=== PATIENT | male | born 1980 ===

== ENCOUNTER 2017-10-03 23:39 | Inpatient (IN) | payer OTHER ==
[2017-10-04 00:40] LABS: BASO % 0.2 % (0.0-2.0); HEMOGLOBIN 14.9 g/dL (12.0-18.0); LYMPH # 1.3 K/uL (1.0-4.3); LYMPH % 10.6 % (20.0-40.0); MEAN CELL VOLUME 89.5 fL (80.0-94.0); MEAN CORPUSCULAR HEMOGLOBIN 30.7 pg (27.0-31.0); MEAN CORPUSCULAR HGB CONC 34.3 g/dL (33.0-37.0); MONO # 0.6 K/uL (0.0-0.8); MONO % 5.2 % (0.0-10.0); NEUT # 10.1 K/uL (1.8-7.0); NRBC % 0.1 % (0.0-2.0); RBC 4.85 Mil/uL (4.40-5.90); RED CELL DISTRIBUTION WIDTH 14.1 % (11.5-14.5); WHITE BLOOD COUNT 12.1 K/uL (4.8-10.8)
[2017-10-04 00:47] LABS: ALB/GLOB RATIO 1.2 (1.0-2.1); ALBUMIN 4.7 g/dL (3.5-5.0); ALT/SGPT 287 U/L (21-72); AST/SGOT 676 U/L (17-59); BLOOD UREA NITROGEN 11 mg/dL (9-20); CALCIUM 8.3 mg/dl (8.6-10.4); GFR AFRICAN-AMERICAN > 60; GFR NON-AFRICAN AMERICAN > 60
[2017-10-04 00:53] LABS: ACETAMINOPHEN < 10.0 ug/mL (10.0-30.0); SALICYLATE < 1.0 mg/dL 1
[2017-10-04] MEDS ORDERED: Sodium Chloride 0.9% 1,000 ML IV ONE ×2 (01:13→04:51)
--- NOTE | 2017-10-04 02:01 | C.PDOC ---
History Of Present Illness 36 year old male presents to the ER by brother after patient was noted to be on a 3 day drinking binge. As per brother, patient is living with 3 other guys who state he has been acting weird. 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 Time Seen by Provider: 10/04/17 00:02 Chief Complaint (Nursing): Substance Abuse History Per: Family History/Exam Limitations: intoxication Onset/Duration Of Symptoms: Days Current Symptoms Are (Timing): Still Present Suicide/Self Injury Attempted (Context): None Modifying Factor(s): Alcohol Associated Symptoms: denies: Depression, Suicidal Thoughts Involuntary Hold By: None Recent travel outside of the [place]: No Past Medical History Reviewed: Historical Data, Nursing Documentation, Vital Signs Vital Signs: Last Vital Signs Temp 97 F L 10/03/17 23:49 Pulse 98 H 10/04/17 05:30 Resp 23 10/04/17 05:30 BP 138/84 10/04/17 05:30 Pulse Ox 96 10/04/17 05:30 Family History: States: Unknown Family Hx - Social History Hx Alcohol Use: Yes Hx Substance Use: No - Immunization History Hx Tetanus Toxoid Vaccination: No Hx Influenza Vaccination: No Hx Pneumococcal Vaccination: No Review Of Systems Review Of Systems: ROS cannot be obtained secondary to pt's inabilty to answer questions. Physical Exam - Physical Exam Appears: Non-toxic, Other (Obese male, ETOH on breath, not answering; lays down on floor, gets up, walks around, lays down again, approximately every 60 seconds.) Skin: Warm, Dry Head: Atraumatic, Normacephalic Eye(s): bilateral: Normal Inspection Oral Mucosa: Moist Chest: Symmetrical, No Tenderness Cardiovascular: Rhythm Regular Respiratory: Normal Breath Sounds, No Rales, No Rhonchi, No Wheezing Gastrointestinal/Abdominal: Soft, No Tenderness Extremity: Other (Ecchymosis to right proximal elbow area) Neurological/Psych: Oriented x3, Normal Speech ED Course And Treatment - Laboratory Results Result Diagrams: 10/04/17 00:36 10/04/17 00:36 O2 Sat by Pulse Oximetry: 96 (Room air) Pulse Ox Interpretation: Normal Progress Note: CT head, blood work, urinalysis, EKG, CXR ordered. IV fluids administered. Reevaluation Time: 06:00 Reassessment Condition: Improved - Physician Consult Information Outcome Of Conversation: 0600: d/w nickie Vega to admit. Disposition Doctor Will See Patient In The: Hospital Counseled Patient/Family Regarding: Studies Performed, Diagnosis - Disposition Disposition: HOSPITALIZED Disposition Time: 07:14 Condition: FAIR - Clinical Impression Clinical Impression: Alcohol dependence - Scribe Statement The provider has reviewed the documentation as recorded by the Scribcat Ghotra All medical record entries made by the Anupibcat were at my direction and personally dictated by me. I have reviewed the chart and agree that the record accurately reflects my personal performance of the history, physical exam, medical decision making, and the department course for this patient. I have also personally directed, reviewed, and agree with the discharge instructions and disposition.
[2017-10-04 03:09] LABS: URINE BILIRUBIN NEGATIVE (NEGATIVE); URINE BLOOD 3+ (NEGATIVE); URINE CLARITY Clear (Clear); URINE COLOR Yellow (YELLOW); URINE GLUCOSE (UA) NORMAL (Normal); URINE LEUKOCYTE ESTERASE NEG Leu/uL (Negative); URINE PROTEIN 2+ mg/dL (NEGATIVE)
[2017-10-04 03:34] LABS: BARBITURATES, UR NEGATIVE (NEGATIVE); BENZODIAZEPINES, UR NEGATIVE (NEGATIVE); OPIATES, UR NEGATIVE (NEGATIVE); PHENCYCLIDINE, UR NEGATIVE (NEGATIVE)
[2017-10-04] MEDS ORDERED: Sodium Chloride 0.9% 1,000 ML ONE (04:51)
--- NOTE | 2017-10-04 07:56 | CP.PCM.HP ---
<Stephan Galvin - Last Filed: 10/04/17 13:40> History of Present Illness - History of Present Illness History of Present Illness: CC: Alcohol withdraw 36 year old male with history of alcohol abuse was brought to the ED by his brother for alcohol intoxication. Patient is intoxicated and unable to provide meaning history. Per brother and sister in law over the phone, patient is a chronic alcohol abuser with no other medical history. Patient has been drinking for the past 4 days. Relatives unable to verified if patient injured himself during intoxication. Unable to obtain further ROS due to patient's condition. PMHx: alcohol abuse PSHx: none Allergy: NKDA Social Hx: alcohol, denies tobacco or other drug use Family Hx: non contributory Home meds: none Present on Admission - Present on Admission Any Indicators Present on Admission: No Review of Systems - Review of Systems Systems not reviewed;Unavailable: Intoxicated, Uncooperative - Constitutional Constitutional: As Per HPI - EENT Eyes: As Per HPI Ears: As Per HPI Nose/Mouth/Throat: As Per HPI - Cardiovascular Cardiovascular: As Per HPI - Respiratory Respiratory: As Per HPI - Gastrointestinal Gastrointestinal: As Per HPI - Genitourinary Genitourinary: As Per HPI - Reproductive: Male Reproductive:Male: As Per HPI - Musculoskeletal Musculoskeletal: As Per HPI - Integumentary Integumentary: As Per HPI - Neurological Neurological: As Per HPI Additional comments: Patient is restless, unable to follow verbal commands - Psychiatric Psychiatric: As Per HPI - Endocrine Endocrine: As Per HPI - Hematologic/Lymphatic Hematologic: As Per HPI Past Patient History - Past Social History Smoking Status: Never Smoked - PSYCHIATRIC Hx Substance Use: No - SURGICAL HISTORY Hx Surgeries: No Meds Allergies/Adverse Reactions: Allergies Allergy/AdvReac Type Severity Reaction Status Date / Time No Known Allergies Allergy Unverified 10/03/17 23:52 Physical Exam - Constitutional Appears: No Acute Distress, Unkempt - ENT Exam ENT Exam: Mucous Membranes Moist, Normal Exam - Neck Exam Neck exam: Positive for: Normal Inspection - Respiratory Exam Respiratory Exam: Clear to Auscultation Bilateral, NORMAL BREATHING PATTERN. absent: Respiratory Distress - Cardiovascular Exam Cardiovascular Exam: REGULAR RHYTHM, +S1, +S2 - GI/Abdominal Exam GI & Abdominal Exam: Normal Bowel Sounds, Soft. absent: Tenderness - Extremities Exam Additional comments: left arm ecchymosis - Neurological Exam Additional comments: Patient does not follow verbal commands, tries to climb out of the bed. - Skin Skin Exam: Dry, Warm Results - Vital Signs Recent Vital Signs: Last Vital Signs Temp 97 F L 10/03/17 23:49 Pulse 102 H 10/04/17 06:44 Resp 23 10/04/17 06:44 BP 157/85 H 10/04/17 06:44 Pulse Ox 96 10/04/17 07:15 - Labs Result Diagrams: 10/04/17 00:36 10/04/17 00:36 Labs: Laboratory Results - last 24 hr 10/04/17 10/04/17 10/04/17 00:36 00:36 00:36 WBC 12.1 H RBC 4.85 Hgb 14.9 Hct 43.4 MCV 89.5 MCH 30.7 MCHC 34.3 RDW 14.1 Plt Count 167 MPV 10.0 Neut % (Auto) 84.0 H Lymph % (Auto) 10.6 L [place] % (Auto) 5.2 Eos % (Auto) 0.0 Baso % (Auto) 0.2 Neut # (Auto) 10.1 H Lymph # (Auto) 1.3 Dix[place] # (Auto) 0.6 Eos # (Auto) 0.0 Baso # (Auto) 0.0 Sodium 141 Potassium 3.5 L Chloride 95 L Carbon Dioxide 22 Anion Gap 27 H BUN 11 Creatinine 0.6 L Est GFR ( Amer) > 60 Est GFR (Non-Af Amer) > 60 POC Glucose (mg/dL) Random Glucose 130 H Calcium 8.3 L Total Bilirubin 2.0 H AST 676 H ALT 287 H Alkaline Phosphatase 151 H Ammonia 33 Total Protein 8.7 H Albumin 4.7 Globulin 4.0 H Albumin/Globulin Ratio 1.2 Urine Color Urine Clarity Urine pH Ur Specific [place] Urine Protein Urine Glucose (UA) Urine Ketones Urine Blood Urine Nitrate Urine Bilirubin Urine Urobilinogen Ur Leukocyte Esterase Urine RBC (Auto) Salicylates Urine Opiates Screen Urine Methadone Screen Acetaminophen Ur Barbiturates Screen Ur Phencyclidine Scrn Ur Amphetamines Screen U Benzodiazepines Scrn U Oth Cocaine Metabols U Cannabinoids Screen Alcohol, Quantitative 383 H 10/04/17 10/04/17 10/04/17 00:37 00:45 03:02 WBC RBC Hgb Hct MCV MCH MCHC RDW Plt Count MPV Neut % (Auto) Lymph % (Auto) [place] % (Auto) Eos % (Auto) Baso % (Auto) Neut # (Auto) Lymph # (Auto) [place] # (Auto) Eos # (Auto) Baso # (Auto) Sodium Potassium Chloride Carbon Dioxide Anion Gap BUN Creatinine Est GFR ( Amer) Est GFR (Non-Af Amer) POC Glucose (mg/dL) 109 Random Glucose Calcium Total Bilirubin AST ALT Alkaline Phosphatase Ammonia Total Protein Albumin Globulin Albumin/Globulin Ratio Urine Color Yellow Urine Clarity Clear Urine pH 6.0 Ur Specific [place] 1.013 Urine Protein 2+ H Urine Glucose (UA) Normal Urine Ketones 2+ H Urine Blood 3+ H Urine Nitrate Negative Urine Bilirubin Negative Urine Urobilinogen 4.0 Ur Leukocyte Esterase Neg Urine RBC (Auto) 27 H Salicylates < 1.0 Urine Opiates Screen Urine Methadone Screen Acetaminophen < 10.0 L Ur Barbiturates Screen Ur Phencyclidine Scrn Ur Amphetamines Screen U Benzodiazepines Scrn U Oth Cocaine Metabols U Cannabinoids Screen Alcohol, Quantitative 10/04/17 03:02 WBC RBC Hgb Hct MCV MCH MCHC RDW Plt Count MPV Neut % (Auto) Lymph % (Auto) [place] % (Auto) Eos % (Auto) Baso % (Auto) Neut # (Auto) Lymph # (Auto) [place] # (Auto) Eos # (Auto) Baso # (Auto) Sodium Potassium Chloride Carbon Dioxide Anion Gap BUN Creatinine Est GFR ( Amer) Est GFR (Non-Af Amer) POC Glucose (mg/dL) Random Glucose Calcium Total Bilirubin AST ALT Alkaline Phosphatase Ammonia Total Protein Albumin Globulin Albumin/Globulin Ratio Urine Color Urine Clarity Urine pH Ur Specific [place] Urine Protein Urine Glucose (UA) Urine Ketones Urine Blood Urine Nitrate Urine Bilirubin Urine Urobilinogen Ur Leukocyte Esterase Urine RBC (Auto) Salicylates Urine Opiates Screen Negative Urine Methadone Screen Negative Acetaminophen Ur Barbiturates Screen Negative Ur Phencyclidine Scrn Negative Ur Amphetamines Screen Negative U Benzodiazepines Scrn Negative U Oth Cocaine Metabols Negative U Cannabinoids Screen Negative Alcohol, Quantitative Assessment & Plan - Assessment and Plan (Free Text) Assessment: Alcohol intoxication -Banana bag IV 100ml/hr -Ativan IV 1mg Q4hr prn -Follow up hepatitis panel, CPK -1:1 observation -[facility] -Head CT shows no evidence of intracranial mass or hemorrhage -Psychiatry consult, Dr. Glez help appreciated Prophylactic measures -Protonix -SCD -Zofran -Motrin <Lacey D eLa Vega - Last Filed: 10/04/17 15:12> Results - Vital Signs Recent Vital Signs: Last Vital Signs Temp 97.5 F L 10/04/17 08:01 Pulse 112 H 10/04/17 12:53 Resp 20 10/04/17 08:01 BP 130/67 10/04/17 08:01 Pulse Ox 99 10/04/17 08:01 - Labs Result Diagrams: 10/04/17 00:36 10/04/17 00:36 Labs: Laboratory Results - last 24 hr 10/04/17 10/04/17 10/04/17 00:36 00:36 00:36 WBC 12.1 H RBC 4.85 Hgb 14.9 Hct 43.4 MCV 89.5 MCH 30.7 MCHC 34.3 RDW 14.1 Plt Count 167 MPV 10.0 Neut % (Auto) 84.0 H Lymph % (Auto) 10.6 L [place] % (Auto) 5.2 Eos % (Auto) 0.0 Baso % (Auto) 0.2 Neut # (Auto) 10.1 H Lymph # (Auto) 1.3 [place] # (Auto) 0.6 Eos # (Auto) 0.0 Baso # (Auto) 0.0 Sodium 141 Potassium 3.5 L Chloride 95 L Carbon Dioxide 22 Anion Gap 27 H BUN 11 Creatinine 0.6 L Est GFR ( Amer) > 60 Est GFR (Non-Af Amer) > 60 POC Glucose (mg/dL) Random Glucose 130 H Calcium 8.3 L Total Bilirubin 2.0 H AST 676 H ALT 287 H Alkaline Phosphatase 151 H Ammonia 33 Total Creatine Kinase 6715 H Total Protein 8.7 H Albumin 4.7 Globulin 4.0 H Albumin/Globulin Ratio 1.2 Triglycerides 354 H Cholesterol 349 H LDL Cholesterol Direct 222 H HDL Cholesterol 84 H TSH 3rd Generation 0.47 Urine Color Urine Clarity Urine pH Ur Specific [place] Urine Protein Urine Glucose (UA) Urine Ketones Urine Blood Urine Nitrate Urine Bilirubin Urine Urobilinogen Ur Leukocyte Esterase Urine RBC (Auto) Salicylates Urine Opiates Screen Urine Methadone Screen Acetaminophen Ur Barbiturates Screen Ur Phencyclidine Scrn Ur Amphetamines Screen U Benzodiazepines Scrn U Oth Cocaine Metabols U Cannabinoids Screen Alcohol, Quantitative 383 H 10/04/17 10/04/17 10/04/17 00:37 00:45 03:02 WBC RBC Hgb Hct MCV MCH MCHC RDW Plt Count MPV Neut % (Auto) Lymph % (Auto) [place] % (Auto) Eos % (Auto) Baso % (Auto) Neut # (Auto) Lymph # (Auto) [place] # (Auto) Eos # (Auto) Baso # (Auto) Sodium Potassium Chloride Carbon Dioxide Anion Gap BUN Creatinine Est GFR ( Amer) Est GFR (Non-Af Amer) POC Glucose (mg/dL) 109 Random Glucose Calcium Total Bilirubin AST ALT Alkaline Phosphatase Ammonia Total Creatine Kinase Total Protein Albumin Globulin Albumin/Globulin Ratio Triglycerides Cholesterol LDL Cholesterol Direct HDL Cholesterol TSH 3rd Generation Urine Color Yellow Urine Clarity Clear Urine pH 6.0 Ur Specific [place] 1.013 Urine Protein 2+ H Urine Glucose (UA) Normal Urine Ketones 2+ H Urine Blood 3+ H Urine Nitrate Negative Urine Bilirubin Negative Urine Urobilinogen 4.0 Ur Leukocyte Esterase Neg Urine RBC (Auto) 27 H Salicylates < 1.0 Urine Opiates Screen Urine Methadone Screen Acetaminophen < 10.0 L Ur Barbiturates Screen Ur Phencyclidine Scrn Ur Amphetamines Screen U Benzodiazepines Scrn U Oth Cocaine Metabols U Cannabinoids Screen Alcohol, Quantitative 10/04/17 03:02 WBC RBC Hgb Hct MCV MCH MCHC RDW Plt Count MPV Neut % (Auto) Lymph % (Auto) [place] % (Auto) Eos % (Auto) Baso % (Auto) Neut # (Auto) Lymph # (Auto) [place] # (Auto) Eos # (Auto) Baso # (Auto) Sodium Potassium Chloride Carbon Dioxide Anion Gap BUN Creatinine Est GFR ( Amer) Est GFR (Non-Af Amer) POC Glucose (mg/dL) Random Glucose Calcium Total Bilirubin AST ALT Alkaline Phosphatase Ammonia Total Creatine Kinase Total Protein Albumin Globulin Albumin/Globulin Ratio Triglycerides Cholesterol LDL Cholesterol Direct HDL Cholesterol TSH 3rd Generation Urine Color Urine Clarity Urine pH Ur Specific [place] Urine Protein Urine Glucose (UA) Urine Ketones Urine Blood Urine Nitrate Urine Bilirubin Urine Urobilinogen Ur Leukocyte Esterase Urine RBC (Auto) Salicylates Urine Opiates Screen Negative Urine Methadone Screen Negative Acetaminophen Ur Barbiturates Screen Negative Ur Phencyclidine Scrn Negative Ur Amphetamines Screen Negative U Benzodiazepines Scrn Negative U Oth Cocaine Metabols Negative U Cannabinoids Screen Negative Alcohol, Quantitative Attending/Attestation - Attestation I have personally seen and examined this patient.: Yes I have fully participated in the care of the patient.: Yes I have reviewed all pertinent clinical information: Yes Notes (Text): Patient was seen and examined. He was sedated after ativan. Not able to get history. [place] was agitated at ER. History taken form his family Patient is arousable and moving all [address] head negative for bleed/ pathology Has elevated LFT likely due to alcohol.normal ammonia level.Mild leukocytosis.likely reactive leukocytosis.no fever,clear chest x jacinto. High alcohol level 383 1. Alcohol withdrawal/alcohol abuse 2. Transaminitis 3. Hyperlipidemia 4.Leukocytosis continue banana bag. Ativan as needed.Get US abdomen,follow LFT,seizure and aspiration precaution.GI and DVT prophylaxis. psychiatry consult appreciated discussed with the resident. I agree with the resident's documentation of the assessment and the plan
--- NOTE | 2017-10-04 08:53 | RAD ---
PROCEDURE: CHEST RADIOGRAPH, 1 VIEW HISTORY: Detox/Psy COMPARISON: None available. FINDINGS: LUNGS: Clear. PLEURA: No pneumothorax or pleural fluid seen. CARDIOVASCULAR: Normal. OSSEOUS STRUCTURES: No significant abnormalities. VISUALIZED UPPER ABDOMEN: Normal. OTHER FINDINGS: None. IMPRESSION: No active disease.
[2017-10-04 09:25] LABS: HDL CHOLESTEROL 84 mg/dL (30-70)
[2017-10-04 09:36] LABS: LDL CHOLESTEROL 222 mg/dL (0-129)
[2017-10-04] MEDS: Folic Acid 1 MG, Thiamine 100 MG, Multivitamin (MVI) 10 ML in Sodium Chloride 0.9% 1,00... IV SCH (10:09)
[2017-10-04] MEDS: Pantoprazole 40 mg EC Tab PO SCH (10:12)
--- NOTE | 2017-10-04 10:21 | CT ---
PROCEDURE: CT HEAD WITHOUT CONTRAST. HISTORY: AMS, alcohol intoxication, poss trauma COMPARISON: None available. TECHNIQUE: Axial computed tomography images were obtained through the head/brain without intravenous contrast. Radiation dose: Total exam DLP = 1006.54 mGy-cm. This CT exam was performed using one or more of the following dose reduction techniques: Automated exposure control, adjustment of the mA and/or kV according to patient size, and/or use of iterative reconstruction technique. FINDINGS: HEMORRHAGE: No intracranial hemorrhage. BRAIN: No mass effect or edema. No atrophy or chronic microvascular ischemic changes. VENTRICLES: Unremarkable. No hydrocephalus. CALVARIUM: Unremarkable. PARANASAL SINUSES: Small left maxillary retention cyst/polyp. MASTOID AIR CELLS: Unremarkable as visualized. No inflammatory changes. OTHER FINDINGS: None. IMPRESSION: No intracranial mass, hemorrhage or evidence of acute infarct.
--- NOTE | 2017-10-04 12:25 | PCM.PSYCH ---
Initial Psychiatric Evaluation - Initial Psychiatric Evaluation Chief Complaint (in patient's own words): No response to c/c question. He is seen for a consult for alcohol wdw. licensed and certified midwife used. History of Present Illness and Precipitating Events: The pt is seen, chart reviewed and case discussed He is a very poor historian b/c of his confusion. He is a 36 y/o LM, single, lives with some friends and works on and off He drinks more than a pint but in binges. Denies drugs Reports depressive sxs and a suicide attempt last year. Not suicidal now His alertness comes and goes. He is somewhat oriented to place/time, is restless and sweating. Medical: Obese Family psych hx: Unknown Current Medications: Active Medications Generic Name Dose Route Start Last Admin Trade Name Freq PRN Reason Stop Dose Admin Gabapentin 400 mg 10/04/17 14:00 Neurontin PO TID GABY Haloperidol 5 mg 10/04/17 12:20 Haldol PO Q4H PRN Agitation Folic Acid 1 mg/ Thiamine HCl 1,011.2 mls @ 100 mls/hr 10/04/17 10:00 10:09 100 mg/ Multivitamins/Vitamin IV 100 mls/hr C 10 ml/ Sodium Chloride DAILY GABY Administration Ibuprofen 400 mg 10/04/17 07:32 Motrin Tab PO Q6 PRN Fever >100.4 F Lorazepam 1 mg 10/04/17 08:30 Ativan IVP Q4H PRN Seizure activity Lorazepam 2 mg 10/04/17 12:30 Ativan IVP 10/08/17 12:29 Q6H GABY Taper Lorazepam 1 mg 10/04/17 12:18 Ativan IVP Q3H PRN Breakthru alcohol withdrawal Ondansetron HCl 4 mg 10/04/17 07:32 Zofran Inj IVP Q6 PRN Nausea/Vomiting Pantoprazole Sodium 40 mg 10/04/17 10:00 10/04/17 10:12 Protonix Ec Tab PO Not Given DAILY GABY Past Psychiatric History - Past Psychiatric History Previous Treatment History: Intensive Outpatient Pertinent Medical Hx (Current Medical&Sleep Prob, Allergies): Allergies Allergy/AdvReac Type Severity Reaction Status Date / Time No Known Allergies Allergy Unverified 10/03/17 23:52 Review of Systems - Neurological Neurological: Confusion, Tremor - Psychiatric Psychiatric: Abnormal Sleep Pattern, Anxiety, Confusion, Difficulty Concentrating, Hallucinations (likely), Irritability. absent: Homicidal Ideation, Suicidal Ideation Mental Status Examination - Personal Presentation Personal Presentation: Looks older than stated age - Affect Affect: Blunted (odd) - Motor Activity Motor Activity: Other (restless) - Reliability in Providing Information Reliability in Providing Information: Poor, due to cognitve impairment - Speech Speech: Disorganized - Mood Mood: Anxious - Formal Thought Process Formal Thought Process: Hallucinations, Loosening of associations - Cognitive Functions Orientation: Place ('hospital" Disoriented in other spheres) Attention/Concentration: Easily distracted Abstract Thinking: [place] Estimate of Intelligence: Average Judgement: Intact, as evidence by: Insight regarding need for hospitalization Memory: Recent impaired, as evidence by: Inability to recall events of the day - Risk Risk: Seizure, Withdrawal, Diminished functioning - Strength & Assets Inventory Strength & Assets Inventory: Life experience, Cooperative - Limitations Limitations: Living alone DSM 5 DX - DSM 5 DSM 5 Diagnosis: Alcohol withdrawal delirium Alcohol use d/o - severe MAjor depression, recurrent, moderate - Recommended/Plan of Treatment Treatment Recommendations and Plan of Treatment: Ativan detox Remeron for depression, insomnia As needed medications Gabapentin for augmentation All risks, benefits and alternatives of medications, including no medications, discussed and the patient understood Supportive therapy and psychoeducation AR for abstinence CBT for relapse prevention Encourage MAT Refer to rehab or IOP/AA 34 min
[2017-10-05 08:52] LABS: BASO % 0.2 % (0.0-2.0); EOS % 0.5 % (0.0-4.0); HEMOGLOBIN 13.8 g/dL (12.0-18.0); LYMPH # 0.9 K/uL (1.0-4.3); LYMPH % 12.5 % (20.0-40.0); MEAN CELL VOLUME 89.8 fL (80.0-94.0); MEAN CORPUSCULAR HEMOGLOBIN 31.1 pg (27.0-31.0); MEAN CORPUSCULAR HGB CONC 34.6 g/dL (33.0-37.0); MEAN PLATELET VOLUME 10.6 fL (7.2-11.7); MONO # 0.3 K/uL (0.0-0.8); NEUT # 6.2 K/uL (1.8-7.0); NEUT % 82.8 % (50.0-75.0); NRBC % 0.2 % (0.0-2.0); RBC 4.43 Mil/uL (4.40-5.90); RED CELL DISTRIBUTION WIDTH 14.2 % (11.5-14.5); WHITE BLOOD COUNT 7.5 K/uL (4.8-10.8)
[2017-10-05 08:57] LABS: ALB/GLOB RATIO 1.2 (1.0-2.1); ALBUMIN 4.3 g/dL (3.5-5.0); ALT/SGPT 215 U/L (21-72); AST/SGOT 297 U/L (17-59); BLOOD UREA NITROGEN 7 mg/dL (9-20); CALCIUM 8.6 mg/dl (8.6-10.4); GFR AFRICAN-AMERICAN > 60; GFR NON-AFRICAN AMERICAN > 60
[2017-10-05] MEDS: Pantoprazole 40 mg EC Tab PO SCH (09:14)
[2017-10-05] MEDS: Folic Acid 1 MG, Thiamine 100 MG, Multivitamin (MVI) 10 ML in Sodium Chloride 0.9% 1,00... IV SCH (09:14)
--- NOTE | 2017-10-05 09:55 | PCM.PYCHPN ---
Psychiatric Progress Note - Psychiatric Progress Note Patient seen today, length of contact: 16 min Patient Chief Complaint: "OK" Problems Identified/Issues Discussed: He is seen with Albanian-speaking nurse, chart reviewed. He is better than yesterday; not restless, more in control and speaking more but with some hesitancy and pausing. He has blunted affect, but denied feeling suicidal. Depressed but doesn't look sad, more perplexed. Denied AVH, better oriented but not fully. Support given Medication Change: Yes (detox changes daily) Medical Record Reviewed: Yes Mental Status Examination - Cognitive Function Orientation: Person, Place Memory: Impaired Attention: Poor Concentration: Poor Association: Loose Fund of Knowledge: Poor - Mood Mood: Anxious - Affect Affect: Blunted (odd) - Speech Speech: Soft - Formal Thought Process Formal Thought Process: Loosening of associations - Suicidal Ideation Suicidal Ideation: No - Homicidal Ideation Homicidal Ideation: No Goal/Treatment Plan - Goal/Treatment Plan Need for Continued Stay: Discharge may exacerbated symptoms, Severe functional impairment, Other (medical) Progress Toward Problem(s) and Goals/Treatment Plan: Ativan detox Remeron for depression, insomnia As needed medications Gabapentin for augmentation All risks, benefits and alternatives of medications, including no medications, discussed and the patient understood Supportive therapy and psychoeducation ID for abstinence CBT for relapse prevention Encourage MAT Refer to rehab or IOP/AA
--- NOTE | 2017-10-05 10:28 | CP.PCM.PN ---
<Stephan Galvin - Last Filed: 10/05/17 15:15> Subjective - Date & Time of Evaluation Date of Evaluation: 10/05/17 Time of Evaluation: 08:15 - Subjective Subjective: Patient seen and examined at bedside. Patient has been restless all night. Currently patient is able to answer simple questions with long pauses. He is unable to answer how he got the bruises on his body. Patient denies pain anywhere in the body. He further denies headache, dizziness, shortness of breath , chest pain, nausea, vomiting. Objective - Vital Signs/Intake and Output Vital Signs (last 24 hours): Temp Pulse Resp BP Pulse Ox 97.6 F 125 H 20 133/89 97 10/05/17 04:31 10/05/17 04:31 10/05/17 04:31 10/05/17 04:31 10/05/17 04:31 Intake and Output: 10/05/17 10/05/17 06:59 18:59 Intake Total 740 Output Total 2000 Balance -1260 - Medications Medications: Current Medications Folic Acid (Folic Acid) 1 mg PO DAILY [facility] Gabapentin (Neurontin) 400 mg PO TID [facility] Last Admin: 10/05/17 09:15 Dose: 400 mg Haloperidol (Haldol) 5 mg PO Q4H PRN PRN Reason: Agitation Haloperidol Lactate (Haldol) 5 mg IVP Q6H PRN PRN Reason: severe agitation Sodium Chloride (Sodium Chloride 0.9%) 1,000 mls @ 100 mls/hr IV .Q10H [facility] Ibuprofen (Motrin Tab) 400 mg PO Q6 PRN PRN Reason: Fever >100.4 F Lorazepam (Ativan) 2 mg IVP Q6H [facility] PRN Reason: Taper Stop: 10/08/17 12:29 Last Admin: 10/05/17 06:34 Dose: 2 mg Lorazepam (Ativan) 1 mg IVP Q3H PRN PRN Reason: Breakthru alcohol withdrawal Last Admin: 10/04/17 13:56 Dose: 1 mg Lorazepam (Ativan) 2 mg IVP Q4H PRN PRN Reason: Seizure activity Mirtazapine (Remeron) 15 mg PO HS [facility] Ondansetron HCl (Zofran Inj) 4 mg IVP Q6 PRN PRN Reason: Nausea/Vomiting Pantoprazole Sodium (Protonix Ec Tab) 40 mg PO DAILY [facility] Last Admin: 10/05/17 09:14 Dose: 40 mg Pneumococcal Polyvalent Vaccine (Pneumovax 23 Vaccine) 0.5 ml IM .ONCE ONE Stop: 10/06/17 10:01 Thiamine HCl (Vitamin B1 Tab) 100 mg PO DAILY [facility] - Labs Labs: 10/05/17 08:26 10/05/17 08:26 - Constitutional Appears: No Acute Distress, Confused - Head Exam Head Exam: ATRAUMATIC, NORMOCEPHALIC - Eye Exam Eye Exam: Normal appearance - ENT Exam ENT Exam: Mucous Membranes Moist - Neck Exam Neck Exam: Normal Inspection - Respiratory Exam Respiratory Exam: Clear to Ausculation Bilateral, NORMAL BREATHING PATTERN. absent: Respiratory Distress - Cardiovascular Exam Cardiovascular Exam: Tachycardia, +S1, +S2 - GI/Abdominal Exam GI & Abdominal Exam: Soft, Normal Bowel Sounds - Neurological Exam Neurological Exam: Awake. absent: Oriented x3 (orient to place) - Psychiatric Exam Psychiatric exam: Flat Affect - Skin Additional comments: ecchymosis located at medial left arm, bilateral forearm, and left flank Assessment and Plan - Assessment and Plan (Free Text) Assessment: Alcohol intoxication -NS @100ml/hr -PO folic acid and B1 -Ativan IV 1mg Q4hr prn -Follow up hepatitis panel, CPK -1:1 observation -CIWA -Head CT shows no evidence of intracranial mass or hemorrhage -Psychiatry consult, Dr. Glez help appreciated Transaminitis -Follow up abdominal US -Hepatitis panel pending -AST/ALT today 293/215 Rhabdomyolysis -NS @100ml/hr -improving CPK 4029, 2589 today Hematuria -Light red color urine this afternoon -Repeat UA showed RBC 3025 -Urology consult, Dr. Spicer help appreciated Hyperlipidemia -TG 354, Chol 349, LDL 222, HDL 84 -Will start med once LFT and rhabdomyolysis improved Prophylactic measures -Protonix -SCD -Zojeff -Motgerman Case discussed with Dr. De La Vega <Lacey De La Vega - Last Filed: 10/05/17 18:08> Objective - Vital Signs/Intake and Output Vital Signs (last 24 hours): Temp Pulse Resp BP Pulse Ox 99.7 F H 110 H 18 145/101 H 100 10/05/17 16:00 10/05/17 16:07 10/05/17 16:00 10/05/17 16:00 10/05/17 16:00 Intake and Output: 10/05/17 10/05/17 06:59 18:59 Intake Total 740 Output Total 1999 Balance -1260 - Medications Medications: Current Medications Folic Acid (Folic Acid) 1 mg PO DAILY [facility] Gabapentin (Neurontin) 400 mg PO TID [facility] Last Admin: 10/05/17 17:14 Dose: 400 mg Haloperidol (Haldol) 5 mg PO Q4H PRN PRN Reason: Agitation Haloperidol Lactate (Haldol) 5 mg IVP Q6H PRN PRN Reason: severe agitation Sodium Chloride (Sodium Chloride 0.9%) 1,000 mls @ 100 mls/hr IV .Q10H [facility] Last Admin: 10/05/17 14:11 Dose: 100 mls/hr Ibuprofen (Motrin Tab) 400 mg PO Q6 PRN PRN Reason: Fever >100.4 F Lorazepam (Ativan) 2 mg IVP Q8H [facility] PRN Reason: Taper Stop: 10/08/17 12:29 Last Admin: 10/05/17 14:11 Dose: 2 mg Lorazepam (Ativan) 1 mg IVP Q3H PRN PRN Reason: Breakthru alcohol withdrawal Last Admin: 10/04/17 13:56 Dose: 1 mg Lorazepam (Ativan) 2 mg IVP Q4H PRN PRN Reason: Seizure activity Mirtazapine (Remeron) 15 mg PO HS [facility] Ondansetron HCl (Zofran Inj) 4 mg IVP Q6 PRN PRN Reason: Nausea/Vomiting Pantoprazole Sodium (Protonix Ec Tab) 40 mg PO DAILY [facility] Last Admin: 10/05/17 09:14 Dose: 40 mg Pneumococcal Polyvalent Vaccine (Pneumovax 23 Vaccine) 0.5 ml IM .ONCE ONE Stop: 10/06/17 10:01 Potassium Chloride (K-Dur 20 Meq Er Tab) 40 meq PO DAILY [facility] Last Admin: 10/05/17 15:02 Dose: 40 meq Thiamine HCl (Vitamin B1 Tab) 100 mg PO DAILY [facility] - Labs Labs: 10/05/17 08:26 10/05/17 08:26 Attending/Attestation - Attestation I have personally seen and examined this patient.: Yes I have fully participated in the care of the patient.: Yes I have reviewed all pertinent clinical information, including history, physical exam and plan: Yes Notes (Text): Patient was seen and examined. Has no complain. less confused and less agitated than yesterday CPK is coming down. has old ecchymosis. Doesn't know how he got it. He denies abdominal pain,no Noted having gross hematuria.UA shows No nitrate,no leukocyte esterase.continue IV hydration Abdominal US pending. monitor LFT and platelet count,Do PTT and INR Ecchymosis and hematuria may be due to platelet dysfunction due to alcohol intoxication and cirrhosis d/w the resident. I agree with the documentation of the resident's assessment and the plan d/w patient's sister at bed side yesterday. Patient lives alone.
[2017-10-05 13:51] LABS: URINE BILIRUBIN NEGATIVE (NEGATIVE); URINE BLOOD 3+ (NEGATIVE); URINE CLARITY Hazy (Clear); URINE COLOR Red (YELLOW); URINE GLUCOSE (UA) 1+ mg/dL (Normal); URINE LEUKOCYTE ESTERASE NEG Leu/uL (Negative); URINE PROTEIN 2+ mg/dL (NEGATIVE); URINE UROBILINOGEN NORMAL mg/dL (0.2-1.0)
[2017-10-05] MEDS: Sodium Chloride 0.9% 1,000 ML IV SCH ×2 (14:11→21:08)
[2017-10-05] MEDS: Potassium Chloride 20 mEq ER Tab PO SCH (15:02)
[2017-10-05 20:20] LABS: PROTHROMBIN TIME 10.9 SECONDS (9.7-12.2)
[2017-10-06 07:02] LABS: BASO % 0.3 % (0.0-2.0); EOS # 0.1 K/uL (0.0-0.7); EOS % 2.3 % (0.0-4.0); HEMOGLOBIN 13.7 g/dL (12.0-18.0); LYMPH # 1.2 K/uL (1.0-4.3); LYMPH % 19.9 % (20.0-40.0); MEAN CELL VOLUME 89.9 fL (80.0-94.0); MEAN CORPUSCULAR HEMOGLOBIN 30.9 pg (27.0-31.0); MEAN CORPUSCULAR HGB CONC 34.4 g/dL (33.0-37.0); MONO # 0.3 K/uL (0.0-0.8); MONO % 5.4 % (0.0-10.0); NEUT # 4.3 K/uL (1.8-7.0); NEUT % 72.1 % (50.0-75.0); NRBC % 0.1 % (0.0-2.0); RBC 4.42 Mil/uL (4.40-5.90); RED CELL DISTRIBUTION WIDTH 14.1 % (11.5-14.5); WHITE BLOOD COUNT 5.9 K/uL (4.8-10.8)
[2017-10-06 07:12] LABS: PROTHROMBIN TIME 11.6 SECONDS (9.7-12.2)
[2017-10-06 07:46] LABS: ALB/GLOB RATIO 1.1 (1.0-2.1); ALBUMIN 3.9 g/dL (3.5-5.0); ALT/SGPT 196 U/L (21-72); AST/SGOT 189 U/L (17-59); BLOOD UREA NITROGEN 6 mg/dL (9-20); CALCIUM 8.7 mg/dl (8.6-10.4); GFR AFRICAN-AMERICAN > 60; GFR NON-AFRICAN AMERICAN > 60
[2017-10-06] MEDS: Sodium Chloride 0.9% 1,000 ML IV SCH ×2 (08:00→21:43)
--- NOTE | 2017-10-06 08:00 | CP.PCM.PN ---
<ColbyJignesh S - Last Filed: 10/06/17 12:37> Subjective - Date & Time of Evaluation Date of Evaluation: 10/06/17 Time of Evaluation: 07:40 - Subjective Subjective: Medicine progress note for Dr. Chanel Patient seen and examined. Patient states that he is feeling much better and has no acute complaints. Patient states that he is wondering when he will be discharged, but he was advised that he needs more time to assess his status after continuing the tapering. Patient states that he thinks his ecchymoses are from allergy to alcohol. Objective - Vital Signs/Intake and Output Vital Signs (last 24 hours): Temp Pulse Resp BP Pulse Ox 98.5 F 110 H 18 125/88 97 10/06/17 07:35 10/06/17 07:35 10/06/17 07:35 10/06/17 07:35 10/06/17 07:35 Intake and Output: 10/06/17 10/06/17 06:59 18:59 Intake Total 1840 Output Total 2200 Balance -360 - Medications Medications: Current Medications Folic Acid (Folic Acid) 1 mg PO DAILY [facility] Gabapentin (Neurontin) 400 mg PO TID [facility] Last Admin: 10/05/17 17:14 Dose: 400 mg Haloperidol (Haldol) 5 mg PO Q4H PRN PRN Reason: Agitation Haloperidol Lactate (Haldol) 5 mg IVP Q6H PRN PRN Reason: severe agitation Sodium Chloride (Sodium Chloride 0.9%) 1,000 mls @ 100 mls/hr IV .Q10H [facility] Last Admin: 10/05/17 21:08 Dose: 100 mls/hr Ibuprofen (Motrin Tab) 400 mg PO Q6 PRN PRN Reason: Fever >100.4 F Lorazepam (Ativan) 2 mg IVP Q8H [facility] PRN Reason: Taper Stop: 10/08/17 12:29 Last Admin: 10/06/17 04:20 Dose: 2 mg Lorazepam (Ativan) 1 mg IVP Q3H PRN PRN Reason: Breakthru alcohol withdrawal Last Admin: 10/04/17 13:56 Dose: 1 mg Lorazepam (Ativan) 2 mg IVP Q4H PRN PRN Reason: Seizure activity Mirtazapine (Remeron) 15 mg PO HS [facility] Last Admin: 10/05/17 21:08 Dose: 15 mg Ondansetron HCl (Zofran Inj) 4 mg IVP Q6 PRN PRN Reason: Nausea/Vomiting Pantoprazole Sodium (Protonix Ec Tab) 40 mg PO DAILY [facility] Last Admin: 10/05/17 09:14 Dose: 40 mg Pneumococcal Polyvalent Vaccine (Pneumovax 23 Vaccine) 0.5 ml IM .ONCE ONE Stop: 10/06/17 10:01 Potassium Chloride (K-Dur 20 Meq Er Tab) 40 meq PO DAILY [facility] Last Admin: 10/05/17 15:02 Dose: 40 meq Thiamine HCl (Vitamin B1 Tab) 100 mg PO DAILY [facility] - Labs Labs: 10/06/17 06:51 10/06/17 06:51 PT 11.6 SECONDS (9.7-12.2) 10/06/17 06:51 INR 1.0 10/06/17 06:51 APTT 30 SECONDS (21-34) 10/05/17 16:00 - Additional Findings Additional findings: - Constitutional Appears: No Acute Distress, Confused - Head Exam Head Exam: ATRAUMATIC, NORMOCEPHALIC - Eye Exam Eye Exam: Normal appearance - ENT Exam ENT Exam: Mucous Membranes Moist - Neck Exam Neck Exam: Normal Inspection - Respiratory Exam Respiratory Exam: Clear to Auscultation Bilateral, NORMAL BREATHING PATTERN. absent: Respiratory Distress - Cardiovascular Exam Cardiovascular Exam: Tachycardia, +S1, +S2 - GI/Abdominal Exam GI & Abdominal Exam: Soft, Normal Bowel Sounds - Neurological Exam Neurological Exam: Awake. Alert. Oriented x3. - Psychiatric Exam Psychiatric exam: Flat Affect - Skin Additional comments: ecchymosis located at medial left arm, bilateral forearm, and left flank Assessment and Plan - Assessment and Plan (Free Text) Plan: Alcohol intoxication -NS @100ml/hr -PO folic acid and thiamine -Ativan IV 1mg Q4hr prn -CIWA -Head CT shows no evidence of intracranial mass or hemorrhage -Psychiatry consult, Dr. Glez help appreciated * Psych meds per Dr. Glez including Ativan taper and Ativan prn, Haldol prn for agitation, Gabapentin for augmentation -Patient counseled on alcohol cessation Transaminitis -Abdominal US shows hepatamegaly and fatty liver -Hepatitis panel negative -Downtrending LFTs Rhabdomyolysis -NS @100ml/hr -Downtrending CPK Hematuria -Light red color urine this afternoon -Repeat UA showed RBC 3025 -Urology consult, Dr. Spicer help appreciated Hyperlipidemia -TG 354, Chol 349, LDL 222, HDL 84 -Will start med once LFT and rhabdomyolysis improved Prophylactic measures -Protonix -SCD -Zofran -Motrin Disposition: Chronic alcoholic on Ativan taper scheduled to end after tomorrow' s dosing. Once the taper finishes, we will need to monitor him off of scheduled benzodiazepines before discharge. Discussed with Dr. Yanique Bowman PGY-1 <Julito Chanel H - Last Filed: 10/06/17 13:39> Objective - Vital Signs/Intake and Output Vital Signs (last 24 hours): Temp Pulse Resp BP Pulse Ox 98.5 F 110 H 18 125/88 97 10/06/17 07:35 10/06/17 07:35 10/06/17 07:35 10/06/17 07:35 10/06/17 07:35 Intake and Output: 10/06/17 10/06/17 06:59 18:59 Intake Total 1840 Output Total 2200 Balance -360 - Medications Medications: Current Medications Folic Acid (Folic Acid) 1 mg PO DAILY [facility] Last Admin: 10/06/17 09:15 Dose: 1 mg Gabapentin (Neurontin) 400 mg PO TID [facility] Last Admin: 10/06/17 09:16 Dose: 400 mg Haloperidol (Haldol) 5 mg PO Q4H PRN PRN Reason: Agitation Haloperidol Lactate (Haldol) 5 mg IVP Q6H PRN PRN Reason: severe agitation Sodium Chloride (Sodium Chloride 0.9%) 1,000 mls @ 100 mls/hr IV .Q10H [facility] Last Admin: 10/06/17 08:00 Dose: 100 mls/hr Ibuprofen (Motrin Tab) 400 mg PO Q6 PRN PRN Reason: Fever >100.4 F Lorazepam (Ativan) 2 mg IVP Q12H [facility] PRN Reason: Taper Stop: 10/08/17 12:29 Last Admin: 10/06/17 12:43 Dose: 2 mg Lorazepam (Ativan) 1 mg IVP Q3H PRN PRN Reason: Breakthru alcohol withdrawal Last Admin: 10/04/17 13:56 Dose: 1 mg Lorazepam (Ativan) 2 mg IVP Q4H PRN PRN Reason: Seizure activity Mirtazapine (Remeron) 15 mg PO HS [facility] Last Admin: 10/05/17 21:08 Dose: 15 mg Ondansetron HCl (Zofran Inj) 4 mg IVP Q6 PRN PRN Reason: Nausea/Vomiting Pantoprazole Sodium (Protonix Ec Tab) 40 mg PO DAILY [facility] Last Admin: 10/06/17 09:16 Dose: 40 mg Potassium Chloride (K-Dur 20 Meq Er Tab) 40 meq PO DAILY [facility] Last Admin: 10/06/17 09:15 Dose: 40 meq Thiamine HCl (Vitamin B1 Tab) 100 mg PO DAILY [facility] Last Admin: 10/06/17 09:16 Dose: 100 mg - Labs Labs: 10/06/17 06:51 10/06/17 06:51 PT 11.6 SECONDS (9.7-12.2) 10/06/17 06:51 INR 1.0 10/06/17 06:51 APTT 30 SECONDS (21-34) 10/05/17 16:00 Attending/Attestation - Attestation I have personally seen and examined this patient.: Yes I have fully participated in the care of the patient.: Yes I have reviewed all pertinent clinical information, including history, physical exam and plan: Yes Notes (Text): Medical attending: Patient was seen and examined by me. Agree with the above note by the resident The patient was still on the tapering protocol when we saw him. He was not in any acute distress or signs of withdrawl - however while he did ask to be discharged we will wait until the taper is finnished before doing this. His affect is very slow, he does not answer questions immediately. He does respond to questions appropriately . thank you Julito Chanel
[2017-10-06 08:48] LABS: HEPATITIS B SURFACE AG Negative (NEGATIVE)
[2017-10-06 08:54] LABS: HEPATITIS A IGM NEGATIVE (NEGATIVE); HEPATITIS B CORE AB NEGATIVE (NEGATIVE)
--- NOTE | 2017-10-06 08:55 | US ---
HISTORY: Elevated LFT and hematruria COMPARISON: None. TECHNIQUE: Sonographic evaluation of the abdomen. FINDINGS: LIVER: Measures 22.2 cm. Diffusely increased echogenicity of the liver parenchyma. Consistent with fatty infiltration. Smooth contour. No mass. No biliary ductal dilatation. GALLBLADDER: Unremarkable. No gallstones. COMMON BILE DUCT: Measures 4 mm. No stones. No dilatation. PANCREAS: Unremarkable as visualized. No mass. No ductal dilatation. RIGHT KIDNEY: Measures 12.6cm. Normal echogenicity. No calculus, mass, or hydronephrosis. LEFT KIDNEY: Measures 13.0cm. Normal echogenicity. No calculus, mass, or hydronephrosis. SPLEEN: Normal in size and contour. No mass. AORTA: No aneurysmal dilatation. IVC: Unremarkable. OTHER FINDINGS: None. IMPRESSION: Hepatomegaly. Fatty infiltration of the liver. Otherwise unremarkable examination.
--- NOTE | 2017-10-06 08:57 | US ---
PROCEDURE: Ultrasound urinary bladder HISTORY: HEMATURIA COMPARISON: Not available TECHNIQUE: Transabdominal FINDINGS: The distended urinary bladder measures 148.3 cc. This is suboptimally distended. The wall is grossly normal in thickness though evaluation is limited. It is smooth. There is no intraluminal mass. Bilateral ureteral jets are demonstrated. The postvoid residual in the urinary bladder is 0 cc. The prostate measures 22.0 cc. IMPRESSION: No postvoid residual in the urinary bladder. Limited evaluation of bladder as described.
[2017-10-06 09:05] LABS: HEPATITIS C ANTIBODY NEGATIVE (NEGATIVE)
[2017-10-06] MEDS: Potassium Chloride 20 mEq ER Tab PO SCH (09:15)
[2017-10-06] MEDS: Pantoprazole 40 mg EC Tab PO SCH (09:16)
[2017-10-06] MEDS ORDERED: Influenza Vaccine 60 mcg/0.5 mL SYR (4YR UP) IM ONE (10:00)
[2017-10-06] MEDS ORDERED: Pneumococcal 23-Valent Vaccine IM ONE (10:00)
--- NOTE | 2017-10-06 13:49 | CON ---
DATE: 10/06/2017 TIME OF CONSULTATION: 10:30 a.m. BRIEF HISTORY: The patient is a 36-year-old sexually active male, who presents to [facility] Emergency Room with alcohol intoxication and was found to have microscopic hematuria on routine urinalysis. The patient had an abdominal, renal, and bladder ultrasound, which were all relatively normal. The patient had a pre-void volume of about 148 mL and a post void residual of 0. There were no renal masses. No hydronephrosis and no renal or ureteral calculi. The patient denies any history of any abdominal pain or renal colic. No dysuria or gross hematuria. Denies any prior medical history. No history of any kidney disease or kidney stones. No STDs or treatment for STDs. No family history or history of cancer. PHYSICAL EXAMINATION SKIN: He has multiple ecchymoses on his upper and lower extremities, which he does not remember how he obtained during his intoxication episode. GENERAL: He is a well-developed, well-nourished male. He is alert. He is oriented. HEENT: Grossly within normal limits. NECK: Supple. Thyroid not palpable. ABDOMEN: Soft, nondistended, nontender. No CVA tenderness. No suprapubic tenderness.. GENITALIA: The patient is non-circumcised with a normal glandular meatus without any rashes or lesions visualized. Testes are down bilaterally, nontender without any masses. RECTAL: Normal rectal tone without fluctuance or masses. Prostate is average size, smooth, symmetrical, nontender without nodules or indurations with a palpable median sulcus. The patient's prostate volume was 20 mL on bladder ultrasound. EXTREMITIES: The patient has full range of motion of both upper and lower extremities. No leg edema or calf tenderness present. SOCIAL HISTORY: The patient also denies any history of any tobacco use. ALLERGIES: THE PATIENT DENIES ANY HISTORY OF ANY ALLERGIES TO MEDICATIONS. LABORATORY EVALUATION: On 10/05/2017 shows a CBC with WBC count of 7.5, hemoglobin of 13.8, hematocrit 39.8, and platelet count was 107,000, which was slightly low. Sodium was 134, potassium 3.0, chloride 93, CO2 24, BUN and creatinine 7 and 0.5 respectively, with GFR greater than 60. Random glucose was 90, calcium was 8.6, magnesium was 2.2. Total bilirubin was 2.1. AST was 297, ALT was 215, both markedly elevated. Alkaline phosphatase is 117. Creatine kinase was 4029. TSH was 0.47. Urinalysis: Color was red, initially in the ER this color was yellow. It was hazy, pH 6.0, specific gravity 1.011, protein 2+, glucose is 1+, ketones was 2+, blood was 3+, and nitrites was negative, leukocyte esterase was negative. There were 7 WBCs and 3025 RBCs per high-powered field. On admission, there were 27 RBCs per high-powered field. Alcohol quantitative was 383. Hepatitis profile was negative. DIAGNOSTIC IMPRESSION: 1. Gross microscopic hematuria. 2. Thrombocytopenia. 3. Elevated liver enzymes. Plan for this patient is to maintain the patient on fluid hydration, send the urine for culture and sensitivity, correct the patient's liver enzymes and platelets, and the patient can be seen in office followup in two weeks. Treat the patient for any urinary tract infection if positive. Joel Spicer MD MTDKenisha
--- NOTE | 2017-10-06 14:49 | PCM.PYCHPN ---
Psychiatric Progress Note - Psychiatric Progress Note Patient seen today, length of contact: 15 min Patient Chief Complaint: No complaints. See for consult follow up Problems Identified/Issues Discussed: He is seen with [place]-speaking nurse, chart reviewed. Continues to improve Still perplexed, anxious Medication Change: Yes (detox changes daily) Medical Record Reviewed: Yes Mental Status Examination - Cognitive Function Orientation: Person, Place Memory: Impaired Attention: Poor Concentration: Poor Association: Loose Fund of Knowledge: Poor - Mood Mood: Depressed, Anxious - Affect Affect: Blunted (odd) - Speech Speech: Soft - Formal Thought Process Formal Thought Process: No Impairment - Suicidal Ideation Suicidal Ideation: No - Homicidal Ideation Homicidal Ideation: No Goal/Treatment Plan - Goal/Treatment Plan Need for Continued Stay: Discharge may exacerbated symptoms, Severe functional impairment, Other (medical) Progress Toward Problem(s) and Goals/Treatment Plan: Ativan detox Remeron for depression, insomnia As needed medications Gabapentin for augmentation All risks, benefits and alternatives of medications, including no medications, discussed and the patient understood Supportive therapy and psychoeducation NC for abstinence CBT for relapse prevention Encourage MAT Refer to rehab or IOP/AA
[2017-10-06 23:51] VITALS: RESP 20
[2017-10-07] MEDS: Sodium Chloride 0.9% 1,000 ML IV SCH ×2 (02:30→09:27)
[2017-10-07 06:35] LABS: BASO % 0.3 % (0.0-2.0); EOS # 0.2 K/uL (0.0-0.7); EOS % 4.2 % (0.0-4.0); LYMPH # 1.2 K/uL (1.0-4.3); MEAN CELL VOLUME 90.7 fL (80.0-94.0); MEAN CORPUSCULAR HEMOGLOBIN 30.7 pg (27.0-31.0); MEAN CORPUSCULAR HGB CONC 33.8 g/dL (33.0-37.0); MEAN PLATELET VOLUME 9.9 fL (7.2-11.7); MONO # 0.4 K/uL (0.0-0.8); MONO % 7.9 % (0.0-10.0); NEUT # 3.4 K/uL (1.8-7.0); NEUT % 64.6 % (50.0-75.0); NRBC % 0.1 % (0.0-2.0); RBC 4.25 Mil/uL (4.40-5.90); WHITE BLOOD COUNT 5.2 K/uL (4.8-10.8)
[2017-10-07 06:58] LABS: ALB/GLOB RATIO 1.1 (1.0-2.1); ALBUMIN 3.6 g/dL (3.5-5.0); ALT/SGPT 189 U/L (21-72); AST/SGOT 140 U/L (17-59); BLOOD UREA NITROGEN 5 mg/dL (9-20); CALCIUM 8.4 mg/dl (8.6-10.4); GFR AFRICAN-AMERICAN > 60; GFR NON-AFRICAN AMERICAN > 60
--- NOTE | 2017-10-07 07:16 | CP.PCM.PN ---
Subjective - Date & Time of Evaluation Date of Evaluation: 10/07/17 Time of Evaluation: 07:10 - Subjective Subjective: Medicine progress note for Dr. Chanel Patient seen and examined. Objective - Vital Signs/Intake and Output Vital Signs (last 24 hours): Temp Pulse Resp BP Pulse Ox 98.8 F 109 H 20 103/68 96 10/06/17 23:00 10/07/17 00:35 10/06/17 23:00 10/06/17 23:00 10/06/17 23:00 Intake and Output: 10/07/17 10/07/17 06:59 18:59 Intake Total 2190 Output Total 1950 Balance 240 - Medications Medications: Current Medications Folic Acid (Folic Acid) 1 mg PO DAILY [facility] Last Admin: 10/06/17 09:15 Dose: 1 mg Gabapentin (Neurontin) 400 mg PO TID [facility] Last Admin: 10/06/17 18:07 Dose: 400 mg Haloperidol (Haldol) 5 mg PO Q4H PRN PRN Reason: Agitation Haloperidol Lactate (Haldol) 5 mg IVP Q6H PRN PRN Reason: severe agitation Sodium Chloride (Sodium Chloride 0.9%) 1,000 mls @ 100 mls/hr IV .Q10H [facility] Last Admin: 10/07/17 02:30 Dose: Not Given Ibuprofen (Motrin Tab) 400 mg PO Q6 PRN PRN Reason: Fever >100.4 F Lorazepam (Ativan) 2 mg IVP Q12H [facility] PRN Reason: Taper Stop: 10/08/17 12:29 Last Admin: 10/07/17 00:07 Dose: 2 mg Lorazepam (Ativan) 1 mg IVP Q3H PRN PRN Reason: Breakthru alcohol withdrawal Last Admin: 10/04/17 13:56 Dose: 1 mg Lorazepam (Ativan) 2 mg IVP Q4H PRN PRN Reason: Seizure activity Mirtazapine (Remeron) 15 mg PO HS [facility] Last Admin: 10/06/17 21:43 Dose: 15 mg Ondansetron HCl (Zofran Inj) 4 mg IVP Q6 PRN PRN Reason: Nausea/Vomiting Pantoprazole Sodium (Protonix Ec Tab) 40 mg PO DAILY [facility] Last Admin: 10/06/17 09:16 Dose: 40 mg Potassium Chloride (K-Dur 20 Meq Er Tab) 40 meq PO DAILY [facility] Last Admin: 10/06/17 09:15 Dose: 40 meq Thiamine HCl (Vitamin B1 Tab) 100 mg PO DAILY [facility] Last Admin: 10/06/17 09:16 Dose: 100 mg - Labs Labs: 10/07/17 06:19 10/07/17 06:19 PT 11.6 SECONDS (9.7-12.2) 10/06/17 06:51 INR 1.0 10/06/17 06:51 APTT 30 SECONDS (21-34) 10/05/17 16:00 - Additional Findings Additional findings: - Constitutional Appears: No Acute Distress, Confused - Head Exam Head Exam: ATRAUMATIC, NORMOCEPHALIC - Eye Exam Eye Exam: Normal appearance - ENT Exam ENT Exam: Mucous Membranes Moist - Neck Exam Neck Exam: Normal Inspection - Respiratory Exam Respiratory Exam: Clear to Auscultation Bilateral, NORMAL BREATHING PATTERN. absent: Respiratory Distress - Cardiovascular Exam Cardiovascular Exam: Tachycardia, +S1, +S2 - GI/Abdominal Exam GI & Abdominal Exam: Soft, Normal Bowel Sounds - Neurological Exam Neurological Exam: Awake. Alert. Oriented x3. - Psychiatric Exam Psychiatric exam: Flat Affect - Skin Additional comments: ecchymosis located at medial left arm, bilateral forearm, and left flank Assessment and Plan - Assessment and Plan (Free Text) Plan: Alcohol intoxication -NS @100ml/hr -PO folic acid and thiamine -Ativan IV 1mg Q4hr prn -CIWA -Head CT shows no evidence of intracranial mass or hemorrhage -Psychiatry consult, Dr. Glez help appreciated * Psych meds per Dr. Glez including Ativan taper and Ativan prn, Haldol prn for agitation, Gabapentin for augmentation -Patient counseled on alcohol cessation Transaminitis -Abdominal US shows hepatamegaly and fatty liver -Hepatitis panel negative -Downtrending LFTs Rhabdomyolysis -NS @100ml/hr -Downtrending CPK Hematuria -Light red color urine this afternoon -Repeat UA showed RBC 3025 -Urology consult, Dr. Spicer help appreciated Hyperlipidemia -TG 354, Chol 349, LDL 222, HDL 84 -Will start med once LFT and rhabdomyolysis improved Prophylactic measures -Protonix -SCD -Zofran -Motrin Disposition: Chronic alcoholic on Ativan taper. Once the taper finishes, we will need to monitor him off of scheduled benzodiazepines before discharge.
[2017-10-07] MEDS: Potassium Chloride 20 mEq ER Tab PO SCH (09:27)
[2017-10-07] MEDS: Pantoprazole 40 mg EC Tab PO SCH (09:28)
--- NOTE | 2017-10-07 09:54 | CP.PCM.DIS ---
<Jignesh Bowman S - Last Filed: 10/07/17 11:27> Provider - Provider Date of Admission: 10/04/17 06:26 Attending physician: Julito Chanel DO Consults: Psychiatry: Dr. Glez Urology: Dr. Spicer Time Spent in preparation of Discharge (in minutes): 40 Diagnosis - Discharge Diagnosis (1) Alcohol intoxication Status: Acute Priority: High (2) Transaminitis Status: Acute Priority: High (3) Rhabdomyolysis Status: Acute Priority: High (4) Hyperlipidemia Status: Acute Priority: Medium (5) Impaired glucose tolerance Status: Acute Priority: Medium (6) Microscopic hematuria Status: Acute Priority: Low Hospital Course - Lab Results Lab Results: Most Recent Lab Values WBC 5.2 K/uL (4.8-10.8) 10/07/17 06:19 RBC 4.25 Mil/uL (4.40-5.90) L 10/07/17 06:19 Hgb 13.0 g/dL (12.0-18.0) 10/07/17 06:19 Hct 38.5 % (35.0-51.0) 10/07/17 06:19 MCV 90.7 fL (80.0-94.0) 10/07/17 06:19 MCH 30.7 pg (27.0-31.0) 10/07/17 06:19 MCHC 33.8 g/dL (33.0-37.0) 10/07/17 06:19 RDW 14.0 % (11.5-14.5) 10/07/17 06:19 Plt Count 101 K/uL (130-400) L 10/07/17 06:19 MPV 9.9 fL (7.2-11.7) 10/07/17 06:19 Neut % (Auto) 64.6 % (50.0-75.0) 10/07/17 06:19 Lymph % (Auto) 23.0 % (20.0-40.0) 10/07/17 06:19 Dorado % (Auto) 7.9 % (0.0-10.0) 10/07/17 06:19 Eos % (Auto) 4.2 % (0.0-4.0) H 10/07/17 06:19 Baso % (Auto) 0.3 % (0.0-2.0) 10/07/17 06:19 Neut # (Auto) 3.4 K/uL (1.8-7.0) 10/07/17 06:19 Lymph # (Auto) 1.2 K/uL (1.0-4.3) 10/07/17 06:19 Dorado # (Auto) 0.4 K/uL (0.0-0.8) 10/07/17 06:19 Eos # (Auto) 0.2 K/uL (0.0-0.7) 10/07/17 06:19 Baso # (Auto) 0.0 K/uL (0.0-0.2) 10/07/17 06:19 Differential Comment 10/05/17 08:26 PT 11.6 SECONDS (9.7-12.2) 10/06/17 06:51 INR 1.0 10/06/17 06:51 APTT 30 SECONDS (21-34) 10/05/17 16:00 Sodium 137 mmol/L (132-148) 10/07/17 06:19 Potassium 3.1 mmol/L (3.6-5.2) L 10/07/17 06:19 Chloride 102 mmol/L (98-107) 10/07/17 06:19 Carbon Dioxide 27 mmol/L (22-30) 10/07/17 06:19 Anion Gap 11 (10-20) 10/07/17 06:19 BUN 5 mg/dL (9-20) L 10/07/17 06:19 Creatinine 0.5 mg/dL (0.8-1.5) L 10/07/17 06:19 Est GFR ( Amer) > 60 10/07/17 06:19 Est GFR (Non-Af Amer) > 60 10/07/17 06:19 POC Glucose (mg/dL) 109 mg/dL (65-110) 10/04/17 00:37 Random Glucose 119 mg/dL (75-110) H 10/07/17 06:19 Hemoglobin A1c 6.4 % (4.2-6.5) 10/04/17 09:58 Calcium 8.4 mg/dl (8.6-10.4) L 10/07/17 06:19 Magnesium 2.1 mg/dL (1.6-2.3) 10/07/17 06:19 Total Bilirubin 0.9 mg/dL (0.2-1.3) 10/07/17 06:19 AST 140 U/L (17-59) H D 10/07/17 06:19 ALT 189 U/L (21-72) H 10/07/17 06:19 Alkaline Phosphatase 100 U/L (38-126) 10/07/17 06:19 Ammonia 33 umol/L (9-33) 10/04/17 00:36 Total Creatine Kinase 1132 U/L (55-170) H 10/06/17 06:51 Total Protein 6.8 g/dL (6.3-8.3) 10/07/17 06:19 Albumin 3.6 g/dL (3.5-5.0) 10/07/17 06:19 Globulin 3.2 gm/dL (2.2-3.9) 10/07/17 06:19 Albumin/Globulin Ratio 1.1 (1.0-2.1) 10/07/17 06:19 Triglycerides 354 mg/dL (0-149) H 10/04/17 00:36 Cholesterol 349 mg/dL (0-199) H 10/04/17 00:36 LDL Cholesterol Direct 222 mg/dL (0-129) H 10/04/17 00:36 HDL Cholesterol 84 mg/dL (30-70) H 10/04/17 00:36 TSH 3rd Generation 0.47 mIU/L (0.46-4.68) 10/04/17 00:36 Urine Color Red (YELLOW) 10/05/17 13:39 Urine Clarity Hazy (Clear) 10/05/17 13:39 Urine pH 6.0 (5.0-8.0) 10/05/17 13:39 Ur Specific [place] 1.011 (1.003-1.030) 10/05/17 13:39 Urine Protein 2+ mg/dL (NEGATIVE) H 10/05/17 13:39 Urine Glucose (UA) 1+ mg/dL (Normal) H 10/05/17 13:39 Urine Ketones 2+ mg/dL (NEGATIVE) H 10/05/17 13:39 Urine Blood 3+ (NEGATIVE) H 10/05/17 13:39 Urine Nitrate Negative (NEGATIVE) 10/05/17 13:39 Urine Bilirubin Negative (NEGATIVE) 10/05/17 13:39 Urine Urobilinogen Normal mg/dL (0.2-1.0) 10/05/17 13:39 Ur Leukocyte Esterase Neg Nazanin/uL (Negative) 10/05/17 13:39 Urine WBC (Auto) 7 /hpf (0-5) H 10/05/17 13:39 Urine RBC (Auto) 3025 /hpf (0-3) H 10/05/17 13:39 Salicylates < 1.0 mg/dL 1 10/04/17 00:45 Urine Opiates Screen Negative (NEGATIVE) 10/04/17 03:02 Urine Methadone Screen Negative (NEGATIVE) 10/04/17 03:02 Acetaminophen < 10.0 ug/mL (10.0-30.0) L 10/04/17 00:45 Ur Barbiturates Screen Negative (NEGATIVE) 10/04/17 03:02 Ur Phencyclidine Scrn Negative (NEGATIVE) 10/04/17 03:02 Ur Amphetamines Screen Negative (NEGATIVE) 10/04/17 03:02 U Benzodiazepines Scrn Negative (NEGATIVE) 10/04/17 03:02 U Oth Cocaine Metabols Negative (NEGATIVE) 10/04/17 03:02 U Cannabinoids Screen Negative (NEGATIVE) 10/04/17 03:02 Alcohol, Quantitative 383 mg/dl (0-10) H 10/04/17 00:36 Hepatitis A IgM Ab Negative (NEGATIVE) 10/05/17 08:26 Hep Bs Antigen Negative (NEGATIVE) 10/05/17 08:26 Hep B Core IgM Ab Negative (NEGATIVE) 10/05/17 08:26 Hepatitis C Antibody Negative (NEGATIVE) 10/05/17 08:26 - Hospital Course Hospital Course: Initial Note: "36 year old male with history of alcohol abuse was brought to the ED by his brother for alcohol intoxication. Patient is intoxicated and unable to provide meaning history. Per brother and sister in law over the phone, patient is a chronic alcohol abuser with no other medical history. Patient has been drinking for the past 4 days. Relatives unable to verified if patient injured himself during intoxication. Unable to obtain further ROS due to patient's condition." Hospital Course: Patient admitted for alcohol intoxication. Psychiatry was consulted for detox. Patient managed with an Ativan taper given his elevated LFTs. Patient also with rhabdomyolysis which has improved with IV hydration. Abdominal ultrasound showed fatty liver and hepatomegaly. Negative hepatitis panel. Patient showed clinical improvement in mentation since admission and was walked around on rounds with no shortness of breath. Patient also found with microscopic hematuria. Outpatient follow up per urology was recommended. Patient found with hyperlipidemia as well as impaired glucose tolerance. Due to elevated LFTs, patient was not started on a statin in the hospital. Instructions for dietary modification were provided for the impaired glucose tolerance. Alcohol likely contributing, and patient has been counseled and stated that he will stop drinking alcohol. Patient stable for discharge home per primary team. This is a summary of the hospital course. For more information, refer to the medical records. Discharge Exam - Additional Findings Additional findings: - Constitutional Appears: No Acute Distress, Confused - Head Exam Head Exam: ATRAUMATIC, NORMOCEPHALIC - Eye Exam Eye Exam: Normal appearance - ENT Exam ENT Exam: Mucous Membranes Moist - Neck Exam Neck Exam: Normal Inspection - Respiratory Exam Respiratory Exam: Clear to Auscultation Bilateral, NORMAL BREATHING PATTERN. absent: Respiratory Distress - Cardiovascular Exam Cardiovascular Exam: Tachycardia, +S1, +S2 - GI/Abdominal Exam GI & Abdominal Exam: Soft, Normal Bowel Sounds - Neurological Exam Neurological Exam: Awake. Alert. Oriented x3. - Psychiatric Exam Psychiatric exam: Flat Affect - Skin Additional comments: ecchymosis located at medial left arm, bilateral forearm, and left flank Discharge Plan - Discharge Medications Prescriptions: Folic Acid 1 mg PO DAILY #30 tab Naproxen 500 mg PO Q12H #14 tablet Thiamine [Vitamin B1 Tab] 100 mg PO DAILY #30 tab - Follow Up Plan Condition: STABLE Disposition: HOME/ ROUTINE Instructions: Low Carbohydrate Diet, Alcohol Withdrawal (DC), Alcohol Abuse and Alcoholism (DC), Folic Acid, Naproxen, Thiamine Additional Instructions: Please take the vitamins folic acid and thiamine once a day. Please take the Naproxen every 12 hours ONLY if needed for pain. If you take it , take it with food. Please stop drinking alcohol as this can be disastrous to your health. Please follow up in the [facility] in the hospital for behavioral medicine of [facility] in one week. You will also need to be seen by a urologist to evaluate for the blood in the urine. The clinic can facilitate this. Please be careful with your diet and avoid excess sugar, bread, and pasta. You will need to follow a low carbohydrate diet. You will need to also eat a low fat, low cholesterol diet. If there are any new or worsening symptoms, please go to the nearest emergency room. Por favor tome las vitaminas cido flico y tiamina analia vez al da. Por favor, tome Naproxen cada 12 horas SOLAMENTE si es necesario para el dolor. Si lo karla, tmalo con comida. Por favor kari de beber alcohol ya que esto puede ser desastroso para tu jeannine. Por favor vaughn un seguimiento en el [facility] en el [facility] en analia semana. Tambin deber ser visto por un urlogo para evaluar la presencia de jasmin en la orina. La clnica puede facilitar esto. Tenga cuidado con taylor dieta y evite el exceso de azcar, jennings y pasta. Tendr que seguir analia dieta baja en carbohidratos. Tambin necesitar comer analia dieta baja en grasas y baja en colesterol. Si hay sntomas nuevos o que empeoran, vaya a la isai de emergencias ms tony. Referrals: [facility] at [facility] [Outside] <Julito Chanel - Last Filed: 10/07/17 13:35> Provider - Provider Date of Admission: 10/04/17 06:26 Attending physician: Julito Chanel, Hospital Course - Lab Results Lab Results: Most Recent Lab Values WBC 5.2 K/uL (4.8-10.8) 10/07/17 06:19 RBC 4.25 Mil/uL (4.40-5.90) L 10/07/17 06:19 Hgb 13.0 g/dL (12.0-18.0) 10/07/17 06:19 Hct 38.5 % (35.0-51.0) 10/07/17 06:19 MCV 90.7 fL (80.0-94.0) 10/07/17 06:19 MCH 30.7 pg (27.0-31.0) 10/07/17 06:19 MCHC 33.8 g/dL (33.0-37.0) 10/07/17 06:19 RDW 14.0 % (11.5-14.5) 10/07/17 06:19 Plt Count 101 K/uL (130-400) L 10/07/17 06:19 MPV 9.9 fL (7.2-11.7) 10/07/17 06:19 Neut % (Auto) 64.6 % (50.0-75.0) 10/07/17 06:19 Lymph % (Auto) 23.0 % (20.0-40.0) 10/07/17 06:19 Dorado % (Auto) 7.9 % (0.0-10.0) 10/07/17 06:19 Eos % (Auto) 4.2 % (0.0-4.0) H 10/07/17 06:19 Baso % (Auto) 0.3 % (0.0-2.0) 10/07/17 06:19 Neut # (Auto) 3.4 K/uL (1.8-7.0) 10/07/17 06:19 Lymph # (Auto) 1.2 K/uL (1.0-4.3) 10/07/17 06:19 Dorado # (Auto) 0.4 K/uL (0.0-0.8) 10/07/17 06:19 Eos # (Auto) 0.2 K/uL (0.0-0.7) 10/07/17 06:19 Baso # (Auto) 0.0 K/uL (0.0-0.2) 10/07/17 06:19 Differential Comment 10/05/17 08:26 PT 11.6 SECONDS (9.7-12.2) 10/06/17 06:51 INR 1.0 10/06/17 06:51 APTT 30 SECONDS (21-34) 10/05/17 16:00 Sodium 137 mmol/L (132-148) 10/07/17 06:19 Potassium 3.1 mmol/L (3.6-5.2) L 10/07/17 06:19 Chloride 102 mmol/L (98-107) 10/07/17 06:19 Carbon Dioxide 27 mmol/L (22-30) 10/07/17 06:19 Anion Gap 11 (10-20) 10/07/17 06:19 BUN 5 mg/dL (9-20) L 10/07/17 06:19 Creatinine 0.5 mg/dL (0.8-1.5) L 10/07/17 06:19 Est GFR ( Amer) > 60 10/07/17 06:19 Est GFR (Non-Af Amer) > 60 10/07/17 06:19 POC Glucose (mg/dL) 109 mg/dL (65-110) 10/04/17 00:37 Random Glucose 119 mg/dL (75-110) H 10/07/17 06:19 Hemoglobin A1c 6.4 % (4.2-6.5) 10/04/17 09:58 Calcium 8.4 mg/dl (8.6-10.4) L 10/07/17 06:19 Magnesium 2.1 mg/dL (1.6-2.3) 10/07/17 06:19 Total Bilirubin 0.9 mg/dL (0.2-1.3) 10/07/17 06:19 AST 140 U/L (17-59) H D 10/07/17 06:19 ALT 189 U/L (21-72) H 10/07/17 06:19 Alkaline Phosphatase 100 U/L (38-126) 10/07/17 06:19 Ammonia 33 umol/L (9-33) 10/04/17 00:36 Total Creatine Kinase 308 U/L (55-170) H 10/07/17 11:45 CK-MB (Mass) 1.06 ng/mL (0.0-3.38) 10/07/17 11:45 Troponin I < 0.0120 ng/mL (0.00-0.120) 10/07/17 11:45 Total Protein 6.8 g/dL (6.3-8.3) 10/07/17 06:19 Albumin 3.6 g/dL (3.5-5.0) 10/07/17 06:19 Globulin 3.2 gm/dL (2.2-3.9) 10/07/17 06:19 Albumin/Globulin Ratio 1.1 (1.0-2.1) 10/07/17 06:19 Triglycerides 354 mg/dL (0-149) H 10/04/17 00:36 Cholesterol 349 mg/dL (0-199) H 10/04/17 00:36 LDL Cholesterol Direct 222 mg/dL (0-129) H 10/04/17 00:36 HDL Cholesterol 84 mg/dL (30-70) H 10/04/17 00:36 TSH 3rd Generation 0.47 mIU/L (0.46-4.68) 10/04/17 00:36 Urine Color Red (YELLOW) 10/05/17 13:39 Urine Clarity Hazy (Clear) 10/05/17 13:39 Urine pH 6.0 (5.0-8.0) 10/05/17 13:39 Ur Specific [place] 1.011 (1.003-1.030) 10/05/17 13:39 Urine Protein 2+ mg/dL (NEGATIVE) H 10/05/17 13:39 Urine Glucose (UA) 1+ mg/dL (Normal) H 10/05/17 13:39 Urine Ketones 2+ mg/dL (NEGATIVE) H 10/05/17 13:39 Urine Blood 3+ (NEGATIVE) H 10/05/17 13:39 Urine Nitrate Negative (NEGATIVE) 10/05/17 13:39 Urine Bilirubin Negative (NEGATIVE) 10/05/17 13:39 Urine Urobilinogen Normal mg/dL (0.2-1.0) 10/05/17 13:39 Ur Leukocyte Esterase Neg Nazanin/uL (Negative) 10/05/17 13:39 Urine WBC (Auto) 7 /hpf (0-5) H 10/05/17 13:39 Urine RBC (Auto) 3025 /hpf (0-3) H 10/05/17 13:39 Salicylates < 1.0 mg/dL 1 10/04/17 00:45 Urine Opiates Screen Negative (NEGATIVE) 10/04/17 03:02 Urine Methadone Screen Negative (NEGATIVE) 10/04/17 03:02 Acetaminophen < 10.0 ug/mL (10.0-30.0) L 10/04/17 00:45 Ur Barbiturates Screen Negative (NEGATIVE) 10/04/17 03:02 Ur Phencyclidine Scrn Negative (NEGATIVE) 10/04/17 03:02 Ur Amphetamines Screen Negative (NEGATIVE) 10/04/17 03:02 U Benzodiazepines Scrn Negative (NEGATIVE) 10/04/17 03:02 U Oth Cocaine Metabols Negative (NEGATIVE) 10/04/17 03:02 U Cannabinoids Screen Negative (NEGATIVE) 10/04/17 03:02 Alcohol, Quantitative 383 mg/dl (0-10) H 10/04/17 00:36 Hepatitis A IgM Ab Negative (NEGATIVE) 10/05/17 08:26 Hep Bs Antigen Negative (NEGATIVE) 10/05/17 08:26 Hep B Core IgM Ab Negative (NEGATIVE) 10/05/17 08:26 Hepatitis C Antibody Negative (NEGATIVE) 10/05/17 08:26 Attending/Attestation - Attestation I have personally seen and examined this patient.: Yes I have fully participated in the care of the patient.: Yes I have reviewed all pertinent clinical information, including history, physical exam and plan: Yes Notes (Text): 10/07/17 13:32 Medical attending: Patient was seen and examined by me. Agree with the above note by the resident. The patient was able to ambulate into the hallway and back to his room. He did not exhibit signs of tremors and when walking in the hallway he denied chest pain and denied shortness of breath. Tolerating diet ok as well. When he was admitted last week he had a very elevated CPK level from rhabdomylysis - this has since then improved substantially. He was prevoiusly on IVF and now is eating and drinking ok. He denied muscles aches/ pains We explained to him that he has to try to avoid alcohol as he is still young and has a long life a head of him. thank you Julito Chanel
[2017-10-07 12:18] LABS: CK-MB 1.06 ng/mL (0.0-3.38)
[2017-10-07 16:37] VITALS: BP 132/84; PULSE 117; TEMP 97.6; O2SAT 98
--- NOTE | 2017-10-08 19:03 | CARD ---
APPROVED REPORT EKG Measurement Heart [id number] TX 132P54 [id number] <Conclusion> Sinus tachycardia Otherwise normal ECG
--- NOTE | 2017-10-08 23:38 | CARD ---
APPROVED REPORT EKG Measurement Heart [id number] SC 126P61 [id number] <Conclusion> Sinus tachycardia T wave abnormality, consider inferior ischemia Abnormal ECG
== END 2017-10-07 17:50 | disposition home or self-care (01) | DRG 750 ==
LOC: C.ER 23:39 → C.9E 10-04 06:26 → C.6T 10-04 06:26
PROVIDERS: ADMIT Hospitalist; ATTEND Hospitalist
PROC: HZ2ZZZZ Detoxification Services for Substance Abuse Treatment (ICD-10-PCS; principal; 2017-10-04)
PROC: HZ56ZZZ Individual Psychotherapy for Substance Abuse Treatment, Psychoeducation (ICD-10-PCS; 2017-10-04)
PROC: HZ59ZZZ Individual Psychotherapy for Substance Abuse Treatment, Supportive (ICD-10-PCS; 2017-10-04)
PROC: GZ3ZZZZ Medication Management (ICD-10-PCS; 2017-10-04)
DX: F10.221 Alcohol dependence with intoxication delirium (principal); F33.1 Major depressive disorder, recurrent, moderate; F10.231 Alcohol dependence with withdrawal delirium; D69.6 Thrombocytopenia, unspecified; M62.82 Rhabdomyolysis; K76.0 Fatty (change of) liver, not elsewhere classified; Y90.8 Blood alcohol level of 240 mg/100 ml or more; R31.29 Other microscopic hematuria; E78.5 Hyperlipidemia, unspecified; G47.00 Insomnia, unspecified; E66.9 Obesity, unspecified

== ENCOUNTER 2017-10-16 16:27 | Emergency (ER) | payer OTHER ==
[2017-10-16 17:44] LABS: BASO # 0.1 K/uL (0.0-0.2); BASO % 0.7 % (0.0-2.0); EOS # 0.1 K/uL (0.0-0.7); EOS % 1.4 % (0.0-4.0); HEMOGLOBIN 12.7 g/dL (12.0-18.0); LYMPH # 2.3 K/uL (1.0-4.3); MEAN CORPUSCULAR HEMOGLOBIN 30.6 pg (27.0-31.0); MEAN CORPUSCULAR HGB CONC 32.9 g/dL (33.0-37.0); MEAN PLATELET VOLUME 8.8 fL (7.2-11.7); MONO # 0.7 K/uL (0.0-0.8); MONO % 8.5 % (0.0-10.0); NEUT # 4.8 K/uL (1.8-7.0); NEUT % 60.4 % (50.0-75.0); NRBC % 0.1 % (0.0-2.0); RBC 4.16 Mil/uL (4.40-5.90); RED CELL DISTRIBUTION WIDTH 14.7 % (11.5-14.5)
[2017-10-16 17:49] LABS: MEAN CELL VOLUME 93.1 fL (80.0-94.0); WHITE BLOOD COUNT 7.9 K/uL (4.8-10.8)
--- NOTE | 2017-10-16 18:00 | RAD ---
PROCEDURE: Left Knee Radiographs. HISTORY: Pain. COMPARISON: None. FINDINGS: BONES: Normal. No fracture. JOINTS: Joint spaces appear preserved. No significant osteoarthritis. JOINT EFFUSION: Small suprapatellar joint effusion. OTHER FINDINGS: None. IMPRESSION: No evidence of acute displaced fracture nor dislocation. Small suprapatellar joint effusion present.
[2017-10-16 18:02] LABS: ALB/GLOB RATIO 1.2 (1.0-2.1); ALBUMIN 4.3 g/dL (3.5-5.0); ALT/SGPT 186 U/L (21-72); AST/SGOT 91 U/L (17-59); BLOOD UREA NITROGEN 20 mg/dL (9-20); CALCIUM 8.8 mg/dl (8.6-10.4); GFR AFRICAN-AMERICAN > 60; GFR NON-AFRICAN AMERICAN > 60; LIPASE 104 U/L (23-300)
[2017-10-16 18:21] LABS: INR 0.9; PROTHROMBIN TIME 10.3 SECONDS (9.7-12.2)
[2017-10-16] MEDS ORDERED: Sodium Chloride 0.9% 1,000 ML IV ONE (18:27)
[2017-10-16] MEDS ORDERED: Iodixanol 320 MG/ML 100 ML BOTTLE IV ONE (18:35)
--- NOTE | 2017-10-16 19:30 | CT ---
EXAM: CT Angiography Chest With Intravenous Contrast CLINICAL HISTORY: 37 years old, male; Pain; Chest pain; Type not specified; Additional info: Left chest pain. R/O pe TECHNIQUE: Axial computed tomographic angiography images of the chest with intravenous contrast using pulmonary embolism protocol. All CT scans at this facility use one or more dose reduction techniques, viz.: automated exposure control; ma/kV adjustment per patient size (including targeted exams where dose is matched to indication; i.e. head); or iterative reconstruction technique. MIP reconstructed images were created and reviewed. Coronal and sagittal reformatted images were created and reviewed. CONTRAST: 100 mL of visipaque 320 administered intravenously. COMPARISON: No relevant prior studies available. FINDINGS: Limitations: Suboptimal timing of bolus. Pulmonary arteries: No definite pulmonary embolism. Aorta: No aneurysm. No dissection. Lungs: No consolidation. Pleural space: No significant effusion. No pneumothorax. Heart: Borderline cardiomegaly. No significant pericardial effusion. Bones/joints: No acute fracture. Soft tissues: Minimal gynecomastia. Lymph nodes: No pathologically enlarged lymph nodes. Liver: Fatty infiltration. IMPRESSION: 1. No definite CT evidence of pulmonary embolism. 2. Incidental/non-acute findings are described above.
[2017-10-16 19:34] VITALS: TEMP 98.4; O2SAT 98
[2017-10-16 19:36] VITALS: BP 100/60; PULSE 82; RESP 18
--- NOTE | 2017-10-16 19:51 | C.PDOC ---
History Of Present Illness Pt c/o left lower chest pain. Time Seen by Provider: 10/16/17 17:11 Chief Complaint (Nursing): Chest Pain History Per: Patient, Family Onset/Duration Of Symptoms: Days (5) Current Symptoms Are (Timing): Still Present Severity: Moderate Quality: "Pain" Modifying Factors: Other Indicated Below Exacerbating Factors: Turning, Movement, Deep Breathing Additional History Per: Prior Records Past Medical History Reviewed: Historical Data, Nursing Documentation, Vital Signs Vital Signs: Last Vital Signs Temp 98.4 F 10/16/17 19:32 Pulse 82 10/16/17 19:32 Resp 18 10/16/17 19:32 BP 100/60 10/16/17 19:32 Pulse Ox 98 10/16/17 19:32 - Medical History PMH: No Chronic Diseases Surgical History: No Surg Hx - [facility] Procedures DETOXIFICATION SERVICES FOR SUBSTANCE ABUSE TREATMENT (10/04/17) INDIV PSYCHOTHERAPY FOR SUBSTANCE ABUSE TREATMENT, SUPPORT (10/04/17) INDIV PSYCHOTHERAPY FOR SUBSTANCE ABUSE, PSYCHOEDUCATION (10/04/17) MEDICATION MANAGEMENT (10/04/17) Family History: States: Unknown Family Hx - Social History Hx Alcohol Use: Yes Hx Substance Use: No - Immunization History Hx Tetanus Toxoid Vaccination: No Hx Influenza Vaccination: No Hx Pneumococcal Vaccination: No Review Of Systems Except As Marked, All Systems Reviewed And Found Negative. Constitutional: Negative for: Fever, Weakness Cardiovascular: Positive for: Chest Pain Respiratory: Negative for: Shortness of Breath, Hemoptysis Gastrointestinal: Negative for: Abdominal Pain Musculoskeletal: Positive for: Other (Left knee pain). Negative for: Neck Pain , Back Pain Skin: Negative for: Rash Neurological: Negative for: Weakness, Numbness Physical Exam - Physical Exam Appears: Non-toxic, No Acute Distress Skin: Normal Color, Warm, Dry, No Rash Head: Atraumatic, Normacephalic Eye(s): bilateral: Normal Inspection, PERRL, EOMI Neck: Normal ROM, Supple Chest: Symmetrical, No Deformity, Tenderness (left chest wall), No Subcutaneous Emphysema Cardiovascular: Rhythm Regular Respiratory: Normal Breath Sounds, No Accessory Muscle Use Gastrointestinal/Abdominal: Soft, No Tenderness Back: No CVA Tenderness Extremity: Normal ROM, No Pedal Edema, Swelling (left knee with bruising) Neurological/Psych: Oriented x3, Normal Motor, Normal Sensation ED Course And Treatment - Laboratory Results Result Diagrams: 10/16/17 17:35 10/16/17 17:35 ECG: Interpreted By Me, Viewed By Me ECG Rhythm: Sinus Rhythm ECG Interpretation: No Acute Changes Rate From EC O2 Sat by Pulse Oximetry: 98 Pulse Ox Interpretation: Normal - Other Rad Left knee x-rays X-Ray: Viewed By Me, Read By Radiologist Interpretation: IMPRESSION: No evidence of acute displaced fracture nor dislocation. Small suprapatellar joint effusion present. - CT Scan/US CTA of chest Other Rad Studies (CT/US): Read By Radiologist, Radiology Report Reviewed CT/US Interpretation: IMPRESSION: 1. No definite CT evidence of pulmonary embolism. 2. Incidental/non-acute findings are described above. Reassessment Condition: Improved Progress - Interventions Interventions:: Observation, Intravenous fluid - Medications Administered Intravenous: NSAID - Data Reviewed Data Reviewed: Lab, Diagnostic imaging, EKG, Old records - Patient Status Patient status: Mostly improved - Continuity of Care Discussed patient case with:: Patient, Family-HIPPA compliant, ED Nurse - Patient Plan Patient Plan: Discharge, F/U with PCP Disposition Counseled Patient/Family Regarding: Studies Performed, Diagnosis, Need For Followup, Rx Given - Disposition Referrals: [facility] at [facility] [Outside] Disposition: HOME/ ROUTINE Disposition Time: 19:56 Condition: IMPROVED Additional Instructions: Follow up in the clinic for further evaluation and treatment. Return to the ER if you develop shortness of breath, fever, worsening of symptoms or if you have any other concerns. Instructions: Knee Pain (DC), Chest Pain That Is Not Caused by the Heart (DC) Print Language: POLISH - Clinical Impression Clinical Impression: Chest pain, Effusion of left knee
--- NOTE | 2017-10-17 08:27 | RAD ---
PROCEDURE: Radiographs of the Chest and Left Ribs. HISTORY: Left sided chest pain/tenderness COMPARISON: 10/04/2017. TECHNIQUE: Frontal radiograph of the chest and multiple oblique radiographs of the left ribs were obtained. FINDINGS: LEFT RIBS: No acute rib fracture or focal lesion visualized. LUNGS: The lungs are well inflated and clear. PLEURA: No pneumothorax or pleural fluid. CARDIOVASCULAR: Normal sized heart. No pulmonary vascular congestion. OTHER FINDINGS: None. IMPRESSION: Clear lungs. No acute left rib fracture.
--- NOTE | 2017-10-20 21:20 | CARD ---
APPROVED REPORT EKG Measurement Heart [id number] CT 150P57 [id number] <Conclusion> Normal sinus rhythm Normal ECG
== END 2017-10-16 20:27 | disposition home or self-care (01) ==
LOC: C.ER 16:27
DX: R07.9 Chest pain, unspecified (principal); M25.462 Effusion, left knee
CPT/HCPCS: 71101; 71275; 73562; 80053; 83690; 84484; 85025; 85378; 85610; 85730; 93005; 96374; 99284; J1885; J7040; Q9967

== ENCOUNTER 2017-10-24 10:20 | Emergency (ER) | payer OTHER ==
--- NOTE | 2017-10-24 11:23 | C.PDOC ---
History Of Present Illness 37 yo male come in for re-evaluation of Left sided sharp intermittent chest pain for past 2 weeks. Pt reports, pain is worse at night time, " when lay down ", improves with Naproxyn. Otherwise, pt denies recent illness, fever, chills, headache, dizziness, dyspnea, diaphoresis, palpitation, cough, wheezing, abd. pain, N/V/D, denies any other active complaints. Pt admits, was seen here on due to same complaints, blood work done, imaging performed with normal results. FYI: results from visit on 10/16/17 review -Troponin negative, CTA r/o PE- normal study. Time Seen by Provider: 10/24/17 10:56 Chief Complaint (Nursing): Chest Pain History Per: Patient History/Exam Limitations: no limitations Onset/Duration Of Symptoms: Intermittent Episodes, Other (2 weeks ) Current Symptoms Are (Timing): Still Present Quality: Sharp, "Pain" Exacerbating Factors: Other (laying down ) Past Medical History Reviewed: Historical Data, Nursing Documentation, Vital Signs Vital Signs: Last Vital Signs Temp 97.9 F 10/24/17 13:05 Pulse 69 10/24/17 13:05 Resp 20 10/24/17 13:05 BP 99/63 L 10/24/17 13:05 Pulse Ox 98 10/24/17 13:05 - Medical History PMH: No Chronic Diseases Surgical History: No Surg Hx - [facility] Procedures DETOXIFICATION SERVICES FOR SUBSTANCE ABUSE TREATMENT (10/04/17) INDIV PSYCHOTHERAPY FOR SUBSTANCE ABUSE TREATMENT, SUPPORT (10/04/17) INDIV PSYCHOTHERAPY FOR SUBSTANCE ABUSE, PSYCHOEDUCATION (10/04/17) MEDICATION MANAGEMENT (10/04/17) Family History: States: Unknown Family Hx - Social History Hx Alcohol Use: Yes Hx Substance Use: No - Immunization History Hx Tetanus Toxoid Vaccination: No Hx Influenza Vaccination: No Hx Pneumococcal Vaccination: No Review Of Systems Constitutional: Negative for: Fever, Chills, Other (diaphoresis) Cardiovascular: Positive for: Chest Pain (left-sided ). Negative for: Palpitations Respiratory: Negative for: Cough, Wheezing, Other (dyspnea ) Gastrointestinal: Negative for: Nausea, Vomiting, Abdominal Pain Neurological: Negative for: Headache, Dizziness Physical Exam - Physical Exam Appears: Well, Non-toxic, No Acute Distress Skin: Normal Color, Warm, Dry, No Rash Head: Normacephalic Eye(s): bilateral: PERRL Nose: No Flaring, No Discharge Throat: No Erythema Neck: Trachea Midline, Supple Chest: Symmetrical, No Deformity, Tenderness (reproducible Left sided lateral chest wall tenderness over pectoris,no edema, no erythema, no palpable deformity.) Cardiovascular: Rhythm Regular, No Murmur, No JVD, Other ((-) carotid bruits B/L ) Respiratory: No Decreased Breath Sounds, No Accessory Muscle Use, No Stridor, No Wheezing Gastrointestinal/Abdominal: Soft, No Tenderness, No Distention, No Guarding Back: No CVA Tenderness, No Vertebral Tenderness Extremity: Normal ROM, No Pedal Edema, No Deformity, No Swelling Neurological/Psych: Oriented x3, Normal Speech, Normal Motor, Normal Sensation, Normal Reflexes ED Course And Treatment - Laboratory Results Result Diagrams: 10/24/17 11:55 10/24/17 11:55 Lab Interpretation: No Changes Compared To Prior Results ECG: Interpreted By Me, Viewed By Me () ECG Rhythm: Sinus Rhythm ECG Interpretation: Normal, No Changes From Prior Interpretation Of ECG: SR@74/min, NAD, no acute T wave or ST-T changes. O2 Sat by Pulse Oximetry: 97 Pulse Ox Interpretation: Normal - Radiology CXR: Interpreted by Me, Read By Radiologist CXR Interpretation: Yes: No Acute Disease - Other Rad CXR X-Ray: Interpreted by Me, Viewed By Me, Read By Radiologist Interpretation: HISTORY: Cough. COMPARISON: No prior. TECHNIQUE: Chest PA and lateral. FINDINGS: LUNGS: No active pulmonary disease. PLEURA: No significant pleural effusion identified. No pneumothorax apparent. CARDIOVASCULAR: Normal. OSSEOUS STRUCTURES: Minor chronic anterior stature loss of a few mid -lower thoracic segments. VISUALIZED UPPER ABDOMEN: Normal. OTHER FINDINGS: None. IMPRESSION: No active disease. Progress Note: On re-eval, pt appears comfortable, not in any apparent distress. AFebrile, hemodynamicaly stable. Non-toxic. PulsEOx. Neck: Supple , (-) JVD, (-) carotid bruits B/L. Lungs: CTA B/L, BS equal B/L. CVS: (+)S1S2 , reg, (-) murmur. ABd: benign. Blood work review and appears normal. Troponin I- negative, results compare to previous visit from 10/16/17 and appears stable/unchanged. EKG, CXR- no acute finidngs. Pt has clinical findings c/w left sided chest pain, reproducible. Pt advised and ref. to F/u with PMD, Card in 2-3 days for re-eavl. return if any new changes. Disposition Counseled Patient/Family Regarding: Studies Performed, Diagnosis, Need For Followup, Rx Given - Disposition Referrals: [facility] at [facility] [Outside] Disposition: HOME/ ROUTINE Disposition Time: 12:46 Condition: STABLE Additional Instructions: Light duty, avoid physical activity for 1 week Take medication for pain as need Follow up with PMDin 1-2 days for re-evaluation. Return to ED if any worsening or new changes. 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 - Scribe Statement The provider has reviewed the documentation as recorded by the Scribe (Bouchra Coats) All medical record entries made by the Scribe were at my direction and personally dictated by me. I have reviewed the chart and agree that the record accurately reflects my personal performance of the history, physical exam, medical decision making, and the department course for this patient. I have also personally directed, reviewed, and agree with the discharge instructions and disposition.
--- NOTE | 2017-10-24 11:51 | RAD ---
HISTORY: Cough. COMPARISON: No prior. TECHNIQUE: Chest PA and lateral FINDINGS: LUNGS: No active pulmonary disease. PLEURA: No significant pleural effusion identified. No pneumothorax apparent. CARDIOVASCULAR: Normal. OSSEOUS STRUCTURES: Minor chronic anterior stature loss of a few mid -lower thoracic segments. VISUALIZED UPPER ABDOMEN: Normal. OTHER FINDINGS: None. IMPRESSION: No active disease.
[2017-10-24 11:59] LABS: BASO # 0.1 K/uL (0.0-0.2); BASO % 0.7 % (0.0-2.0); EOS # 0.1 K/uL (0.0-0.7); HEMOGLOBIN 14.1 g/dL (12.0-18.0); LYMPH # 1.7 K/uL (1.0-4.3); LYMPH % 24.7 % (20.0-40.0); MEAN CELL VOLUME 91.7 fL (80.0-94.0); MEAN CORPUSCULAR HEMOGLOBIN 30.8 pg (27.0-31.0); MEAN CORPUSCULAR HGB CONC 33.6 g/dL (33.0-37.0); MEAN PLATELET VOLUME 10.4 fL (7.2-11.7); MONO # 0.5 K/uL (0.0-0.8); MONO % 6.6 % (0.0-10.0); NEUT # 4.6 K/uL (1.8-7.0); NRBC % 0.1 % (0.0-2.0); RBC 4.58 Mil/uL (4.40-5.90); RED CELL DISTRIBUTION WIDTH 14.4 % (11.5-14.5); WHITE BLOOD COUNT 6.9 K/uL (4.8-10.8)
[2017-10-24 12:37] LABS: BLOOD UREA NITROGEN 11 mg/dL (9-20); GFR AFRICAN-AMERICAN > 60; GFR NON-AFRICAN AMERICAN > 60
[2017-10-24 13:06] VITALS: BP 99/63; PULSE 69; RESP 20; TEMP 97.9
[2017-10-24 16:57] VITALS: O2SAT 97
--- NOTE | 2017-10-25 21:09 | CARD ---
APPROVED REPORT EKG Measurement Heart [id number] <Conclusion> Normal sinus rhythm Normal ECG
== END 2017-10-24 13:04 | disposition home or self-care (01) ==
LOC: C.ER 10:20
DX: R07.9 Chest pain, unspecified (principal)